=== PATIENT | male | born 1995 | race Two or more races ===

== ENCOUNTER 2021-03-25 18:25 | Emergency (ER) | payer SELFPAY ==
[~2021-03-25] VITALS: Ht 170.2 cm; Wt 59.2 kg
[2021-03-25 18:29] VITALS: BP 114/72
--- NOTE | 2021-03-25 18:49 | NUR ---
REPORT FROM [facility] DECK OF CARE AT THIS TIME
--- NOTE | 2021-03-25 18:57 | NUR ---
URINE SENT TO LAB AT THIS TIME
[2021-03-25] MEDS ORDERED: KETOROLAC 30 MG/1 ML IM ONE (19:00)
[2021-03-25 19:12] LABS: MICROSCOPIC NOT IND
[2021-03-25] MEDS ORDERED: KETOROLAC 30 MG/1 ML ONE (19:13)
--- NOTE | 2021-03-25 19:50 | NUR ---
Patient/Caregiver given discharge instructions and they have confirmed that they understand the instructions. Patient ambulatory with steady gait. NAD, all questions answered appropriately, denies additional needs at this time. No personal belongings left in room after discharge.
== END 2021-03-25 20:02 | disposition home or self-care (01) ==
LOC: ED 18:55
DX: R30.0 Dysuria (principal); R10.9 Unspecified abdominal pain; F17.210 Nicotine dependence, cigarettes, uncomplicated; F15.10 Other stimulant abuse, uncomplicated; Z72.9 Problem related to lifestyle, unspecified
CPT/HCPCS: 81003; 87491; 87591; 96372; 99283; 99406; J1885

== ENCOUNTER 2021-03-29 15:07 | Emergency (ER) | payer OTHER ==
[~2021-03-29] VITALS: Ht 170.2 cm; Wt 59.3 kg
[2021-03-29 15:10] VITALS: BP 119/78
--- NOTE | 2021-03-29 15:15 | NUR ---
Was called by this [facility] for tx of GC, had positive cx with no tx.
--- NOTE | 2021-03-29 15:29 | NUR ---
pa at bs
[2021-03-29] MEDS ORDERED: CEFTRIAXONE 1,000 MG ONE (15:40)
--- NOTE | 2021-03-29 15:45 | NUR ---
Patient given discharge instructions and they have confirmed that they understand the instructions. Patient ambulatory with steady gait.
[2021-03-29] MEDS ORDERED: CEFTRIAXONE 1,000 MG IM ONE (16:00)
== END 2021-03-29 15:52 | disposition home or self-care (01) ==
LOC: ED 15:36
DX: R10.9 Unspecified abdominal pain (principal); Z20.2 Contact with and (suspected) exposure to infections with a predominantly sexual mode of transmission; F17.210 Nicotine dependence, cigarettes, uncomplicated
CPT/HCPCS: 96372; 99283; 99406; J0696